=== PATIENT | female | born 1935 | race Caucasian/White ===

== ENCOUNTER → 2016-08-12 | Outpatient (CLI) | payer MEDICARE | END | disposition disaster alternative care site (69) | LOC: LFPA 09:45 | DX: R05 Cough (principal) ==

== ENCOUNTER → 2016-08-16 | Outpatient (CLI) | payer MEDICARE ==
--- NOTE | ~2016-08-16 | ECHO ---
Transthoracic Echocardiography Report (TTE) Demographics Patient Name MEDARDO GUTHRIE Date of Study 08/16/2016 Patient Number [id number] Visit Number [id number] Date of 1935 Room Number Accession Number [id number] Gender Female Age 81 year(s) Referring Delfina De Jesus MD Hearing And Speech Assistant Gina Barrios RVT, Physician RDGRACIE Physician Interpreting Clifton Gonzáles Toll Line Mechanic Physician Cherie STRATTON Supervising Ordering Physician Delfina De Jesus MD, MD/P Nurse Stress Transmissions Systems Operator Conclusions Contractility Score Summary Normal Left Ventricular contractility was noted. Summary The estimated left ventricular ejection fraction is 60%. Mild to moderate concentric left ventricular hypertrophy. Diastolic assessment reveals Grade III restrictive diastolic dysfunction. The left atrium is severely dilated by LA volume index measurement. Moderate mitral regurgitation by color Doppler. Small circumferential pericardial effusion. Procedure Type of Study TTE procedure:2D Echocardiogram. Procedure Date Date: 08/16/2016 Start: 01:37 PM Study Location: Echo Lab Technical Quality: Adequate visualization Indications:Heart Failure. Appropriate Use Criteria: 9 Patient Status: Routine HR: 58 bpm BP: 174/84 mmHg M-Mode/2D Measurements LV Diastolic Dimension: 4.17 cm LV Systolic Dimension: 2.43 cm LV Septum Diastolic: 1.22 cm LV PW Diastolic: 1.16 cm AO Root Dimension: 2.4 cm Cardiac Output: 2.09 l/min AV Cusp Separation: 2.1 cm RV Diastolic Dimension: 2.37 cm LA volume: 77 ml LVOT: 1.7 cm RV Base: 3.58 cm LVOT VTI: 15.9 cm RV Mid: 2.26 cm LV Stroke volume: 36.07 ml TAPSE: 2.6 cm TDI-S': 12 cm/s Doppler Measurements AV Peak Velocity: 1.31 m/s MV Peak E-Wave: 1.29 m/s AV Peak Gradient: 6.86 mmHg MV Peak A-Wave: 0.4 m/s AV Mean Gradient: 4 mmHg MV E/A Ratio: 3.27 LVOT Peak Velocity: 0.91 m/s MV P1/2t: 47 msec TR Gradient:12.25 mmHg PV Peak Velocity: 1.34 m/s Estimated RAP:8 mmHg PV Peak Gradient: 7.18 mmHg Estimated RVSP: 20 mmHg Estimated PASP: 20.25 mmHg E' Septal Velocity: 0.11 m/s A' Septal Velocity: 0.05 m/s E' Lateral Velocity: 0.09 m/s A' Lateral Velocity: 0.06 m/s Findings Left Ventricle Mild to moderate concentric left ventricular hypertrophy. Diastolic assessment reveals Grade III restrictive diastolic dysfunction. Right Ventricle Normal right ventricle structure and function. Left Atrium The left atrium is severely dilated by LA volume index measurement. Right Atrium Normal right atrial size. Mitral Valve Moderate mitral regurgitation by color Doppler. Moderate to severe mitral annular calcification. Aortic Valve The aortic valve is mildly sclerotic. Tricuspid Valve Mild tricuspid regurgitation by color Doppler. Pulmonic Valve Normal pulmonic valve structure and function. Mild pulmonic valve regurgitation. Pericardial Effusion Small circumferential pericardial effusion. Miscellaneous Visualized portions of the aortic root and ascending aorta appear normal in size. IVC is not dilated. Blunted response to sniffing. Pleural Effusion No evidence of pleural effusion. Contractility Score LV regional wall motion:(0-Non visualized 1-Normal 2-Hypokinesis 3-Akinesis 4-Dyskinesis 5-Aneurysm) Signature dtt: Emelyn Lazo dtd: 08/16/16 [id number] Physician Self Edit
== END | disposition disaster alternative care site (69) ==
LOC: GCAR 12:59
DX: I50.9 Heart failure, unspecified (principal); I34.0 Nonrheumatic mitral (valve) insufficiency; I31.3 Pericardial effusion (noninflammatory); I51.89 Other ill-defined heart diseases